=== PATIENT | female | born 1940 | race Caucasian/White ===

== ENCOUNTER 2017-05-28 10:36 | Emergency (ER) | payer MEDICARE, OTHER | END 2017-05-28 13:20 | disposition home or self-care (01) | LOC: FTE 10:36 | DX: M43.6 Torticollis (principal); I10 Essential (primary) hypertension; E11.9 Type 2 diabetes mellitus without complications; Z79.84 Long term (current) use of oral hypoglycemic drugs; Z79.82 Long term (current) use of aspirin | CPT/HCPCS: 99283 ==

== ENCOUNTER 2017-08-27 01:09 | Inpatient (IN) | payer MEDICARE, OTHER ==
[2017-08-27 02:34] LABS: ADD MAN DIFF? NO
[2017-08-27 02:37] LABS: BASOPHILS % 0.3 % (0.0-2.0); EOSINOPHILS # 0.1 10^3/ul (0.0-0.5); EOSINOPHILS % 1.1 % (0.0-7.0); HEMATOCRIT 39.4 % (37.0-47.0); HEMOGLOBIN 12.8 g/dl (12.0-16.0); LYMPHOCYTES # 3.2 10^3/ul (0.8-2.9); LYMPHOCYTES % 35.7 % (15.0-51.0); MEAN CORPUSCULAR HEMOGLOBIN 27.3 pg (29.0-33.0); MEAN CORPUSCULAR HGB CONC 32.5 g/dl (32.0-37.0); MONOCYTE # 0.8 10^3/ul (0.3-0.9); MONOCYTES % 8.7 % (0.0-11.0); NEUTROPHIL # 4.9 10^3/ul (1.6-7.5); PLATELET COUNT 267 10^3/UL (140-415); RED BLOOD COUNT 4.69 10^6/ul (4.20-5.40); RED CELL DISTRIBUTION WIDTH 14.5 % (11.5-14.5)
[2017-08-27 02:58] LABS: ALANINE AMINOTRANSFERASE 22 IU/L (13-69); ALBUMIN 3.9 g/dl (3.3-4.9); ALBUMIN/GLOBULIN RATIO 0.97; ALKALINE PHOSPHATASE 114 IU/L (42-121); ANION GAP 17 (8-16); ASPARTATE AMINO TRANSFERASE 30 IU/L (15-46); BILIRUBIN,INDIRECT 1.3 mg/dl (0-1.1); BILIRUBIN,TOTAL 1.3 mg/dl (0.2-1.3); BLOOD UREA NITROGEN 14 mg/dl (7-20); CALCIUM 8.6 mg/dl (8.4-10.2); CARBON DIOXIDE 24 mmol/L (21-31); CHLORIDE 91 mmol/L (97-110); CREATININE 0.93 mg/dl (0.44-1.00); GLUCOSE 138 mg/dl (70-220); SODIUM 127 mmol/L (135-144); TOTAL PROTEIN 7.9 g/dl (6.1-8.1)
[2017-08-27 03:08] LABS: B-TYPE NATRIURETIC PEPTIDE 1370 PG/ML (0-450)
[2017-08-27 03:09] LABS: TROPONIN-I < 0.012 ng/ml (0.00-0.12)
[2017-08-27] MEDS: FUROSEMIDE 40 MG INJ IV ×2 (03:26→17:50)
[2017-08-27] MEDS ORDERED: NACL 0.9% 3 ML SYG IV (03:30)
[2017-08-27] MEDS ORDERED: ONDANSETRON 4 MG INJ IV (03:30)
[2017-08-27] MEDS ORDERED: morphine 2 MG INJ IV (03:30)
[2017-08-27] MEDS ORDERED: BISACODYL (EC) 5 MG TAB PO (03:30)
[2017-08-27] MEDS ORDERED: DOCUSATE SODIUM 100 MG CAP PO (03:30)
[2017-08-27] MEDS ORDERED: NITROGLYCERIN (SL) 0.4 MG TAB SL (03:30)
[2017-08-27] MEDS ORDERED: ACETAMINOPHEN 325 MG TAB PO (03:30)
[2017-08-27 05:47] LABS: ADD MAN DIFF? NO
[2017-08-27 05:52] LABS: BASOPHIL # 0.1 10^3/ul (0.0-0.1); BASOPHILS % 0.6 % (0.0-2.0); EOSINOPHILS # 0.1 10^3/ul (0.0-0.5); EOSINOPHILS % 1.4 % (0.0-7.0); HEMATOCRIT 37.6 % (37.0-47.0); HEMOGLOBIN 12.1 g/dl (12.0-16.0); LYMPHOCYTES # 2.4 10^3/ul (0.8-2.9); MEAN CORPUSCULAR HEMOGLOBIN 26.9 pg (29.0-33.0); MEAN CORPUSCULAR HGB CONC 32.2 g/dl (32.0-37.0); MEAN CORPUSCULAR VOLUME 83.7 fl (82.0-101.0); MEAN PLATELET VOLUME 10.2 fl (7.4-10.4); MONOCYTE # 0.7 10^3/ul (0.3-0.9); MONOCYTES % 7.9 % (0.0-11.0); NEUTROPHIL # 5.6 10^3/ul (1.6-7.5); NEUTROPHILS % 62.8 % (39.0-77.0); PLATELET COUNT 279 10^3/UL (140-415); RED BLOOD COUNT 4.49 10^6/ul (4.20-5.40); RED CELL DISTRIBUTION WIDTH 13.7 % (11.5-14.5)
[2017-08-27 05:52] LABS: WHITE BLOOD COUNT 8.9 10^3/ul (4.8-10.8)
[2017-08-27 06:22] LABS: ALANINE AMINOTRANSFERASE 29 IU/L (13-69); ALBUMIN 3.5 g/dl (3.3-4.9); ALBUMIN/GLOBULIN RATIO 0.97; ALKALINE PHOSPHATASE 105 IU/L (42-121); ANION GAP 13 (8-16); ASPARTATE AMINO TRANSFERASE 29 IU/L (15-46); BILIRUBIN,INDIRECT 1.2 mg/dl (0-1.1); BILIRUBIN,TOTAL 1.2 mg/dl (0.2-1.3); BLOOD UREA NITROGEN 14 mg/dl (7-20); CALCIUM 8.7 mg/dl (8.4-10.2); CARBON DIOXIDE 29 mmol/L (21-31); CHLORIDE 91 mmol/L (97-110); CHOL/HDL RATIO 2.8 RATIO; CHOLESTEROL 115 mg/dl (100-200); GLUCOSE 139 mg/dl (70-220); HDL CHOLESTEROL 41 mg/dl (33-92); LDL CHOLESTEROL,CALCULATED 59 mg/dl; POTASSIUM 4.9 mmol/L (3.5-5.1); SODIUM 128 mmol/L (135-144); TOTAL PROTEIN 7.1 g/dl (6.1-8.1); TRIGLYCERIDES 77 mg/dl (0-149)
[2017-08-27] MEDS: INSULIN ASPART [NOVOLOG] 3 ML PEN SC ×4 (07:55→21:00)
[2017-08-27] MEDS: METOPROLOL (XL) 50 MG TAB PO ×2 (09:23→21:35)
[2017-08-27] MEDS: ASPIRIN 81 MG TAB PO (09:23)
[2017-08-27 09:58] LABS: CK-MB 0.86 ng/ml (0.0-2.4)
[2017-08-27 10:09] LABS: CK INDEX 2.4
[2017-08-27 10:14] LABS: CREATINE KINASE 36 IU/L (23-200)
[2017-08-27 10:24] LABS: TROPONIN-I < 0.012 ng/ml (0.00-0.12)
[2017-08-27] MEDS ORDERED: GLUCAGON 1 MG INJ IM (11:00)
[2017-08-27] MEDS ORDERED: DEXTROSE 50% 50 ML SYRINGE IV ×2 (11:00)
[2017-08-27] MEDS ORDERED: GLUCOSE GEL 15 GRAM TUBE PO ×2 (11:00)
[2017-08-27] MEDS ORDERED: GLUCOSE GEL 15 GRAM TUBE BUCCAL (11:00)
[2017-08-27] MEDS: INSULIN GLARGINE [LANtus] 3 ML PEN SC (12:21)
[2017-08-27] MEDS: ENOXAPARIN 40 MG/0.4 ML SYG SC (12:22)
[2017-08-27 12:53] LABS: OSMOLALITY 264 mOsm/kg (280-295)
[2017-08-27 15:21] LABS: CREATINE KINASE 43 IU/L (23-200)
[2017-08-27 15:29] LABS: CK INDEX 1.9; CK-MB 0.81 ng/ml (0.0-2.4)
[2017-08-27 15:32] LABS: TROPONIN-I < 0.012 ng/ml (0.00-0.12)
[2017-08-27 17:57] LABS: SODIUM,URINE RANDOM 62 mmol/L (30-90)
[2017-08-27] MEDS ORDERED: morphine LIQ (10 MG/5 ML) CUP PO (18:30)
[2017-08-27 18:38] LABS: OSMOLALITY,URINE 165 mOsm/kg (250-1200)
[2017-08-27] MEDS: ATORVASTATIN 10 MG TAB PO (21:34)
[2017-08-27] MEDS: APIXABAN 5 MG TABLET PO (21:34)
[2017-08-28] MEDS: ACCU-CHEK XX (02:00)
[2017-08-28] MEDS: FUROSEMIDE 40 MG INJ IV ×2 (06:05→18:30)
[2017-08-28] MEDS: INSULIN GLARGINE [LANtus] 3 ML PEN SC (08:10)
[2017-08-28] MEDS: INSULIN ASPART [NOVOLOG] 3 ML PEN SC ×4 (08:11→21:00)
[2017-08-28 08:56] LABS: ADD MAN DIFF? NO
[2017-08-28 09:02] LABS: WHITE BLOOD COUNT 6.4 10^3/ul (4.8-10.8)
[2017-08-28 09:02] LABS: BASOPHIL # 0.1 10^3/ul (0.0-0.1); BASOPHILS % 0.8 % (0.0-2.0); EOSINOPHILS # 0.1 10^3/ul (0.0-0.5); EOSINOPHILS % 1.6 % (0.0-7.0); HEMATOCRIT 40.9 % (37.0-47.0); HEMOGLOBIN 13.4 g/dl (12.0-16.0); LYMPHOCYTES # 2.2 10^3/ul (0.8-2.9); LYMPHOCYTES % 33.5 % (15.0-51.0); MEAN CORPUSCULAR HEMOGLOBIN 27.2 pg (29.0-33.0); MEAN CORPUSCULAR HGB CONC 32.8 g/dl (32.0-37.0); MEAN PLATELET VOLUME 10.7 fl (7.4-10.4); MONOCYTE # 0.6 10^3/ul (0.3-0.9); MONOCYTES % 8.9 % (0.0-11.0); NEUTROPHIL # 3.5 10^3/ul (1.6-7.5); PLATELET COUNT 308 10^3/UL (140-415); RED BLOOD COUNT 4.93 10^6/ul (4.20-5.40); RED CELL DISTRIBUTION WIDTH 14.1 % (11.5-14.5)
[2017-08-28] MEDS: APIXABAN 5 MG TABLET PO ×2 (09:17→20:37)
[2017-08-28] MEDS: METOPROLOL (XL) 50 MG TAB PO ×2 (09:17→20:39)
[2017-08-28] MEDS: ASPIRIN 81 MG TAB PO (09:17)
[2017-08-28 09:26] LABS: ALANINE AMINOTRANSFERASE 25 IU/L (13-69); ALBUMIN 3.7 g/dl (3.3-4.9); ALBUMIN/GLOBULIN RATIO 0.94; ALKALINE PHOSPHATASE 109 IU/L (42-121); ANION GAP 13 (8-16); ASPARTATE AMINO TRANSFERASE 39 IU/L (15-46); BILIRUBIN,INDIRECT 1.4 mg/dl (0-1.1); BILIRUBIN,TOTAL 1.4 mg/dl (0.2-1.3); BLOOD UREA NITROGEN 9 mg/dl (7-20); CALCIUM 8.5 mg/dl (8.4-10.2); CARBON DIOXIDE 35 mmol/L (21-31); CHLORIDE 91 mmol/L (97-110); CREATININE 0.63 mg/dl (0.44-1.00); GLUCOSE 126 mg/dl (70-220); POTASSIUM 3.6 mmol/L (3.5-5.1); SODIUM 135 mmol/L (135-144); TOTAL PROTEIN 7.6 g/dl (6.1-8.1)
[2017-08-28 09:44] LABS: MAGNESIUM 1.4 mg/dl (1.7-2.5)
[2017-08-28] MEDS: MAGNESIUM SULFATE 3 GM in DEXTROSE 5% 100 ML IVPB (12:52)
[2017-08-28] MEDS: LISINOPRIL 5 MG TAB PO (16:01)
[2017-08-28] MEDS: ATORVASTATIN 20 MG TAB PO (20:37)
[2017-08-29] MEDS: ACCU-CHEK XX (02:00)
[2017-08-29] MEDS: FUROSEMIDE 40 MG INJ IV (05:56)
[2017-08-29 06:28] LABS: ADD MAN DIFF? NO
[2017-08-29 06:38] LABS: BASOPHILS % 0.6 % (0.0-2.0); EOSINOPHILS # 0.1 10^3/ul (0.0-0.5); EOSINOPHILS % 2.1 % (0.0-7.0); HEMATOCRIT 39.3 % (37.0-47.0); HEMOGLOBIN 12.8 g/dl (12.0-16.0); LYMPHOCYTES # 2.4 10^3/ul (0.8-2.9); MEAN CORPUSCULAR HEMOGLOBIN 27.2 pg (29.0-33.0); MEAN CORPUSCULAR HGB CONC 32.6 g/dl (32.0-37.0); MEAN CORPUSCULAR VOLUME 83.4 fl (82.0-101.0); MEAN PLATELET VOLUME 10.5 fl (7.4-10.4); MONOCYTE # 0.6 10^3/ul (0.3-0.9); MONOCYTES % 9.1 % (0.0-11.0); NEUTROPHIL # 3.5 10^3/ul (1.6-7.5); NEUTROPHILS % 51.9 % (39.0-77.0); PLATELET COUNT 308 10^3/UL (140-415); RED BLOOD COUNT 4.71 10^6/ul (4.20-5.40)
[2017-08-29 06:38] LABS: WHITE BLOOD COUNT 6.7 10^3/ul (4.8-10.8)
[2017-08-29 07:04] LABS: MAGNESIUM 1.7 mg/dl (1.7-2.5)
[2017-08-29 07:04] LABS: PHOSPHORUS 4.8 mg/dl (2.5-4.9)
[2017-08-29 07:07] LABS: ALANINE AMINOTRANSFERASE 27 IU/L (13-69); ALBUMIN/GLOBULIN RATIO 0.88; ALKALINE PHOSPHATASE 86 IU/L (42-121); ANION GAP 12 (8-16); ASPARTATE AMINO TRANSFERASE 33 IU/L (15-46); BILIRUBIN,INDIRECT 1.2 mg/dl (0-1.1); BILIRUBIN,TOTAL 1.2 mg/dl (0.2-1.3); BLOOD UREA NITROGEN 13 mg/dl (7-20); CALCIUM 8.6 mg/dl (8.4-10.2); CARBON DIOXIDE 36 mmol/L (21-31); CHLORIDE 91 mmol/L (97-110); CREATININE 0.58 mg/dl (0.44-1.00); GLUCOSE 114 mg/dl (70-220); SODIUM 135 mmol/L (135-144); TOTAL PROTEIN 6.4 g/dl (6.1-8.1)
[2017-08-29] MEDS: INSULIN ASPART [NOVOLOG] 3 ML PEN SC ×3 (07:55→17:24)
[2017-08-29] MEDS: LISINOPRIL 5 MG TAB PO (08:01)
[2017-08-29] MEDS: APIXABAN 5 MG TABLET PO (08:02)
[2017-08-29] MEDS: METOPROLOL (XL) 50 MG TAB PO (08:02)
[2017-08-29] MEDS: INSULIN GLARGINE [LANtus] 3 ML PEN SC (08:11)
[2017-08-29] MEDS: MAGNESIUM SULFATE 3 GM in DEXTROSE 5% 100 ML IVPB (15:54)
[2017-08-30] MEDS ORDERED: FUROSEMIDE 40 MG TAB PO (09:00)
== END 2017-08-29 18:30 | disposition home or self-care (01) | DRG 292 ==
LOC: E/R 01:09 → TEL 03:13
DX: I11.0 Hypertensive heart disease with heart failure (principal); E87.1 Hypo-osmolality and hyponatremia; I50.23 Acute on chronic systolic (congestive) heart failure; I48.91 Unspecified atrial fibrillation; E66.9 Obesity, unspecified; Z68.33 Body mass index [BMI] 33.0-33.9, adult; Z91.14 Patient's other noncompliance with medication regimen; I42.9 Cardiomyopathy, unspecified; E78.00 Pure hypercholesterolemia, unspecified; I27.20 Pulmonary hypertension, unspecified; E11.9 Type 2 diabetes mellitus without complications; Z79.82 Long term (current) use of aspirin; Z79.84 Long term (current) use of oral hypoglycemic drugs
CPT/HCPCS: 36415; 71045; 80053; 80061; 82550; 82553; 82962; 83036; 83735; 83880; 83930; 83935; 84100; 84300; 84443; 84484; 85025; 93005; 93306; 96374; 99285-25

== ENCOUNTER 2018-06-02 07:00 | Inpatient (IN) | payer MEDICARE, OTHER ==
[2018-06-02] MEDS: ALBUTEROL 0.5% (NEB) 2.5 MG/0.5 ML AMP INH (08:01)
[2018-06-02 08:12] LABS: ADD UMIC YES; UR ASCORBIC ACID NEGATIVE (NEGATIVE); UR BACTERIA FEW /HPF (NONE SEEN); UR BILIRUBIN (Dip) NEGATIVE (NEGATIVE); UR BLOOD (Dip) NEGATIVE (NEGATIVE); UR CLARITY SLIGHTLY CLOUDY (CLEAR); UR COLOR YELLOW (YELLOW); UR GLUCOSE (Dip) NEGATIVE (NEGATIVE); UR KETONES (Dip) NEGATIVE (NEGATIVE); UR LEUKOCYTE ESTERASE (Dip) 1+ Leu/ul (NEGATIVE); UR NITRITE (Dip) NEGATIVE (NEGATIVE); UR RBC 7 /HPF (0-5); UR SPECIFIC GRAVITY (Dip) 1.013 (1.003-1.030); UR SQUAMOUS EPITHELIAL CELL FEW /HPF (FEW); UR TOTAL PROTEIN (Dip) 2+ mg/dl (NEGATIVE); UR UROBILINOGEN (Dip) 2+ mg/dL (NEGATIVE); UR WBC 127 /HPF (0-5)
[2018-06-02] MEDS: ONDANSETRON 4 MG INJ IV (08:31)
[2018-06-02] MEDS: KETOROLAC 15 MG INJ IV (08:32)
[2018-06-02] MEDS: NICARDipine HCL 30 MG CAPSULE PO (08:32)
[2018-06-02 08:33] LABS: ADD MAN DIFF? NO
[2018-06-02] MEDS: SOD CHLORIDE 0.9% 500 ML IV (08:33)
[2018-06-02 08:38] LABS: BASOPHILS % 0.4 % (0.0-2.0); EOSINOPHILS % 0.1 % (0.0-7.0); HEMATOCRIT 39.7 % (37.0-47.0); HEMOGLOBIN 13.1 g/dl (12.0-16.0); LYMPHOCYTES # 2.1 10^3/ul (0.8-2.9); LYMPHOCYTES % 23.3 % (15.0-51.0); MEAN CORPUSCULAR HEMOGLOBIN 30.2 pg (29.0-33.0); MEAN CORPUSCULAR VOLUME 91.5 fl (82.0-101.0); MEAN PLATELET VOLUME 10.7 fl (7.4-10.4); NEUTROPHIL # 5.8 10^3/ul (1.6-7.5); NEUTROPHILS % 64.9 % (39.0-77.0); PLATELET COUNT 238 10^3/UL (140-415); RED BLOOD COUNT 4.34 10^6/ul (4.20-5.40); RED CELL DISTRIBUTION WIDTH 12.9 % (11.5-14.5)
[2018-06-02] MEDS: CEFTRIAXONE 1 GM/50 ML (PMX) 50 ML IVPB (08:46)
[2018-06-02 08:52] LABS: ALANINE AMINOTRANSFERASE 10 IU/L (13-69); ALBUMIN 4.3 g/dl (3.3-4.9); ALBUMIN/GLOBULIN RATIO 0.95; ALKALINE PHOSPHATASE 83 IU/L (42-121); ANION GAP 15 (5-13); ASPARTATE AMINO TRANSFERASE 39 IU/L (15-46); BILIRUBIN,INDIRECT 1.1 mg/dl (0-1.1); BILIRUBIN,TOTAL 1.1 mg/dl (0.2-1.3); BLOOD UREA NITROGEN 9 mg/dl (7-20); CALCIUM 9.1 mg/dl (8.4-10.2); CARBON DIOXIDE 29 mmol/L (21-31); CHLORIDE 89 mmol/L (97-110); CREATININE 0.51 mg/dl (0.44-1.00); GLUCOSE 164 mg/dl (70-220); LIPASE 37 U/L (23-300); POTASSIUM 4.8 mmol/L (3.5-5.1); SODIUM 133 mmol/L (135-144); TOTAL PROTEIN 8.8 g/dl (6.1-8.1)
[2018-06-02 09:03] LABS: B-TYPE NATRIURETIC PEPTIDE 5210 PG/ML (0-450); TROPONIN-I < 0.012 ng/ml (0.000-0.120)
[2018-06-02] MEDS ORDERED: ONDANSETRON 4 MG INJ IV (11:30)
[2018-06-02] MEDS ORDERED: NACL 0.9% 3 ML SYG IV (11:30)
[2018-06-02] MEDS: ERGOCALCIFEROL 50,000 UNIT CAP PO (13:51)
[2018-06-02] MEDS: OSELTAMIVIR 75 MG CAP PO ×2 (13:52→20:40)
[2018-06-02] MEDS ORDERED: DEXTROSE 50% 50 ML SYRINGE IV ×2 (16:00)
[2018-06-02] MEDS ORDERED: GLUCOSE GEL 15 GRAM TUBE BUCCAL (16:00)
[2018-06-02] MEDS ORDERED: GLUCOSE GEL 15 GRAM TUBE PO ×2 (16:00)
[2018-06-02] MEDS ORDERED: GLUCAGON 1 MG INJ IM (16:00)
[2018-06-02] MEDS: INSULIN ASPART [NOVOLOG] 3 ML PEN SC ×3 (17:19→20:41)
[2018-06-02] MEDS: LEVALBUTEROL (NEB) 0.63 MG/3 ML AMP HHN (19:56)
[2018-06-02] MEDS: APIXABAN 5 MG TABLET PO (20:41)
[2018-06-02] MEDS: ATORVASTATIN 10 MG TAB PO (20:41)
[2018-06-02] MEDS: ACETAMINOPHEN 325 MG TAB PO (20:42)
[2018-06-02] MEDS: INSULIN GLARGINE [LANTus] (100 UNITS/ML) SYG SC (20:53)
[2018-06-02] MEDS ORDERED: NON-FORMULARY/PATIENT OWN MED (Pravastatin Sodium* 40 MG) PO (21:00)
[2018-06-02] MEDS ORDERED: PIPER-TAZO 3.375 GM IV (PMX) 100 ML IVPB (23:00)
[2018-06-02] MEDS ORDERED: VANCOMYCIN IV PER PHARMACY XX (23:00)
[2018-06-02] MEDS: PIPER-TAZO 3.375 GM IV (PMX) 100 ML IVPB (23:20)
[2018-06-03] MEDS: VANCOMYCIN HCL 1.5 GM in SOD CHLORIDE 0.9% 250 ML IVPB (01:19)
[2018-06-03] MEDS: LEVALBUTEROL (NEB) 0.63 MG/3 ML AMP HHN ×4 (02:00→21:30)
[2018-06-03 05:56] LABS: ADD MAN DIFF? NO
[2018-06-03 06:09] LABS: BASOPHILS % 0.6 % (0.0-2.0); HEMATOCRIT 39.6 % (37.0-47.0); HEMOGLOBIN 13.2 g/dl (12.0-16.0); LYMPHOCYTES # 2.8 10^3/ul (0.8-2.9); LYMPHOCYTES % 38.3 % (15.0-51.0); MEAN CORPUSCULAR HEMOGLOBIN 30.4 pg (29.0-33.0); MEAN CORPUSCULAR HGB CONC 33.3 g/dl (32.0-37.0); MEAN CORPUSCULAR VOLUME 91.2 fl (82.0-101.0); MEAN PLATELET VOLUME 10.6 fl (7.4-10.4); MONOCYTE # 1.1 10^3/ul (0.3-0.9); MONOCYTES % 14.6 % (0.0-11.0); NEUTROPHIL # 3.3 10^3/ul (1.6-7.5); NEUTROPHILS % 46.1 % (39.0-77.0); PLATELET COUNT 200 10^3/UL (140-415); RED BLOOD COUNT 4.34 10^6/ul (4.20-5.40); RED CELL DISTRIBUTION WIDTH 12.9 % (11.5-14.5)
[2018-06-03 06:09] LABS: WHITE BLOOD COUNT 7.3 10^3/ul (4.8-10.8)
[2018-06-03] MEDS: PIPER-TAZO 2.25 GM/NS 50 ML IVPB ×4 (06:12→23:21)
[2018-06-03 06:28] LABS: ALANINE AMINOTRANSFERASE 17 IU/L (13-69); ALBUMIN 3.4 g/dl (3.3-4.9); ALBUMIN/GLOBULIN RATIO 0.87; ALKALINE PHOSPHATASE 73 IU/L (42-121); ANION GAP 15 (5-13); ASPARTATE AMINO TRANSFERASE 29 IU/L (15-46); BILIRUBIN,INDIRECT 0.7 mg/dl (0-1.1); BILIRUBIN,TOTAL 0.7 mg/dl (0.2-1.3); BLOOD UREA NITROGEN 17 mg/dl (7-20); CALCIUM 8.6 mg/dl (8.4-10.2); CARBON DIOXIDE 28 mmol/L (21-31); CHLORIDE 88 mmol/L (97-110); CREATININE 1.03 mg/dl (0.44-1.00); GLUCOSE 111 mg/dl (70-220); POTASSIUM 3.4 mmol/L (3.5-5.1); SODIUM 131 mmol/L (135-144); TOTAL PROTEIN 7.3 g/dl (6.1-8.1)
[2018-06-03 07:01] LABS: CHOL/HDL RATIO 3.3 RATIO; CHOLESTEROL 147 mg/dl (100-200); HDL CHOLESTEROL 44 mg/dl (33-92); LDL CHOLESTEROL,CALCULATED 88 mg/dl; MAGNESIUM 1.6 mg/dl (1.7-2.5); TRIGLYCERIDES 74 mg/dl (0-149)
[2018-06-03 07:01] LABS: PHOSPHORUS 5.3 mg/dl (2.5-4.9)
[2018-06-03 07:06] LABS: HEMOGLOBIN A1C 6.3 % (0-5.9)
[2018-06-03] MEDS: INSULIN ASPART [NOVOLOG] 3 ML PEN SC ×7 (07:53→20:26)
[2018-06-03] MEDS: APIXABAN 5 MG TABLET PO ×2 (08:31→20:26)
[2018-06-03] MEDS: FUROSEMIDE 20 MG TAB PO (08:31)
[2018-06-03] MEDS: LISINOPRIL 5 MG TAB PO (08:31)
[2018-06-03] MEDS: METOPROLOL (XL) 50 MG TAB PO (08:31)
[2018-06-03] MEDS: DILTIAZEM (CD) 180 MG CAP PO (08:32)
[2018-06-03] MEDS: OSELTAMIVIR 75 MG CAP PO (08:32)
[2018-06-03] MEDS: POTASSIUM CHLORIDE (SR) 10 MEQ TAB PO (12:00)
[2018-06-03] MEDS: MAGNESIUM SULFATE 2 GM/50 ML 50 ML IVPB (12:00)
[2018-06-03] MEDS ORDERED: VANCOMYCIN 750 MG (PMX) 250 ML IVPB (13:00)
[2018-06-03 17:24] LABS: SODIUM,URINE RANDOM < 13 mmol/L (30-90)
[2018-06-03 17:53] LABS: OSMOLALITY,URINE 219 mOsm/kg (250-1200)
[2018-06-03] MEDS: ATORVASTATIN 10 MG TAB PO (20:26)
[2018-06-03] MEDS: OSELTAMIVIR 30 MG CAP PO (20:27)
[2018-06-03] MEDS: INSULIN GLARGINE [LANTus] (100 UNITS/ML) SYG SC (20:33)
[2018-06-04] MEDS: VANCOMYCIN 1 GM 250 ML IVPB (00:20)
[2018-06-04] MEDS: LEVALBUTEROL (NEB) 0.63 MG/3 ML AMP HHN ×4 (01:28→20:18)
[2018-06-04 06:21] LABS: ADD MAN DIFF? NO
[2018-06-04] MEDS: PIPER-TAZO 2.25 GM/NS 50 ML IVPB ×2 (06:28→11:51)
[2018-06-04 06:30] LABS: BASOPHILS % 0.4 % (0.0-2.0); EOSINOPHILS % 0.8 % (0.0-7.0); HEMATOCRIT 38.5 % (37.0-47.0); HEMOGLOBIN 12.8 g/dl (12.0-16.0); LYMPHOCYTES # 2.5 10^3/ul (0.8-2.9); LYMPHOCYTES % 50.6 % (15.0-51.0); MEAN CORPUSCULAR HEMOGLOBIN 30.1 pg (29.0-33.0); MEAN CORPUSCULAR HGB CONC 33.2 g/dl (32.0-37.0); MEAN CORPUSCULAR VOLUME 90.6 fl (82.0-101.0); MEAN PLATELET VOLUME 10.8 fl (7.4-10.4); MONOCYTE # 0.6 10^3/ul (0.3-0.9); MONOCYTES % 12.3 % (0.0-11.0); NEUTROPHIL # 1.8 10^3/ul (1.6-7.5); NEUTROPHILS % 35.7 % (39.0-77.0); PLATELET COUNT 193 10^3/UL (140-415); RED BLOOD COUNT 4.25 10^6/ul (4.20-5.40); RED CELL DISTRIBUTION WIDTH 12.7 % (11.5-14.5)
[2018-06-04 06:30] LABS: WHITE BLOOD COUNT 4.9 10^3/ul (4.8-10.8)
[2018-06-04 07:02] LABS: ANION GAP 7 (5-13); BLOOD UREA NITROGEN 19 mg/dl (7-20); CALCIUM 8.4 mg/dl (8.4-10.2); CARBON DIOXIDE 29 mmol/L (21-31); CHLORIDE 94 mmol/L (97-110); CREATININE 0.76 mg/dl (0.44-1.00); GLUCOSE 144 mg/dl (70-220); SODIUM 130 mmol/L (135-144)
[2018-06-04 07:07] LABS: FREE T4 (FREE THYROXINE) 1.56 ng/dl (0.85-1.93)
[2018-06-04 07:07] LABS: POTASSIUM 3.9 mmol/L (3.5-5.1)
[2018-06-04 07:19] LABS: PHOSPHORUS 4.4 mg/dl (2.5-4.9)
[2018-06-04 07:19] LABS: MAGNESIUM 1.9 mg/dl (1.7-2.5)
[2018-06-04] MEDS: INSULIN ASPART [NOVOLOG] 3 ML PEN SC ×7 (07:47→20:08)
[2018-06-04] MEDS: LISINOPRIL 5 MG TAB PO (08:30)
[2018-06-04] MEDS: FUROSEMIDE 20 MG TAB PO (08:31)
[2018-06-04] MEDS: APIXABAN 5 MG TABLET PO ×2 (08:31→20:07)
[2018-06-04] MEDS: METOPROLOL (XL) 50 MG TAB PO (08:31)
[2018-06-04] MEDS: OSELTAMIVIR 30 MG CAP PO ×2 (08:32→20:08)
[2018-06-04 08:49] LABS: OSMOLALITY 271 mOsm/kg (280-295)
[2018-06-04] MEDS: POLYETHYLENE GLYCOL 17 GM PACKET PO ×2 (10:00→20:09)
[2018-06-04] MEDS ORDERED: BISACODYL (EC) 5 MG TAB PO (10:00)
[2018-06-04] MEDS: DILTIAZEM (CD) 180 MG CAP PO (12:44)
[2018-06-04] MEDS: CEFTRIAXONE 1 GM/50 ML (PMX) 50 ML IVPB (16:31)
[2018-06-04] MEDS: ACETAMINOPHEN 325 MG TAB PO (16:31)
[2018-06-04] MEDS: ATORVASTATIN 10 MG TAB PO (20:07)
[2018-06-04] MEDS: INSULIN GLARGINE [LANTus] (100 UNITS/ML) SYG SC (20:19)
[2018-06-04 21:27] LABS: ADD UMIC YES; UR ASCORBIC ACID NEGATIVE (NEGATIVE); UR BILIRUBIN (Dip) NEGATIVE (NEGATIVE); UR BLOOD (Dip) NEGATIVE (NEGATIVE); UR CLARITY CLEAR (CLEAR); UR COLOR YELLOW (YELLOW); UR GLUCOSE (Dip) NEGATIVE (NEGATIVE); UR KETONES (Dip) NEGATIVE (NEGATIVE); UR LEUKOCYTE ESTERASE (Dip) TRACE Leu/ul (NEGATIVE); UR NITRITE (Dip) NEGATIVE (NEGATIVE); UR RBC 0 /HPF (0-5); UR SPECIFIC GRAVITY (Dip) 1.016 (1.003-1.030); UR TOTAL PROTEIN (Dip) NEGATIVE (NEGATIVE); UR UROBILINOGEN (Dip) NEGATIVE (NEGATIVE); UR WBC 1 /HPF (0-5)
[2018-06-04 21:33] LABS: CREATININE,URINE RANDOM 96.11 mg/dl (20-320)
[2018-06-04 21:36] LABS: SODIUM,URINE RANDOM < 13 mmol/L (30-90)
[2018-06-05] MEDS: GUAIFENESIN 20 MG/ML 5ML CUP PO ×2 (00:14→10:25)
[2018-06-05] MEDS: LEVALBUTEROL (NEB) 0.63 MG/3 ML AMP HHN ×3 (01:33→14:19)
[2018-06-05] MEDS ORDERED: hydrALAzine 20 MG INJ IV (02:00)
[2018-06-05 06:12] LABS: ADD MAN DIFF? NO
[2018-06-05 06:20] LABS: WHITE BLOOD COUNT 4.1 10^3/ul (4.8-10.8)
[2018-06-05 06:20] LABS: BASOPHILS % 0.2 % (0.0-2.0); EOSINOPHILS # 0.1 10^3/ul (0.0-0.5); EOSINOPHILS % 1.5 % (0.0-7.0); HEMATOCRIT 37.6 % (37.0-47.0); HEMOGLOBIN 12.5 g/dl (12.0-16.0); LYMPHOCYTES # 2.1 10^3/ul (0.8-2.9); LYMPHOCYTES % 51.9 % (15.0-51.0); MEAN CORPUSCULAR HEMOGLOBIN 30.3 pg (29.0-33.0); MEAN CORPUSCULAR HGB CONC 33.2 g/dl (32.0-37.0); MEAN CORPUSCULAR VOLUME 91.3 fl (82.0-101.0); MEAN PLATELET VOLUME 10.1 fl (7.4-10.4); MONOCYTE # 0.4 10^3/ul (0.3-0.9); MONOCYTES % 10.4 % (0.0-11.0); NEUTROPHIL # 1.5 10^3/ul (1.6-7.5); NEUTROPHILS % 35.8 % (39.0-77.0); PLATELET COUNT 194 10^3/UL (140-415); RED BLOOD COUNT 4.12 10^6/ul (4.20-5.40); RED CELL DISTRIBUTION WIDTH 12.5 % (11.5-14.5)
[2018-06-05 07:14] LABS: PHOSPHORUS 3.7 mg/dl (2.5-4.9)
[2018-06-05 07:14] LABS: MAGNESIUM 1.9 mg/dl (1.7-2.5)
[2018-06-05 07:20] LABS: ANION GAP 2 (5-13); BLOOD UREA NITROGEN 12 mg/dl (7-20); CALCIUM 8.7 mg/dl (8.4-10.2); CARBON DIOXIDE 35 mmol/L (21-31); CHLORIDE 98 mmol/L (97-110); CREATININE 0.57 mg/dl (0.44-1.00); GLUCOSE 111 mg/dl (70-220); SODIUM 135 mmol/L (135-144)
[2018-06-05] MEDS: INSULIN ASPART [NOVOLOG] 3 ML PEN SC ×6 (08:00→17:21)
[2018-06-05] MEDS: APIXABAN 5 MG TABLET PO (08:16)
[2018-06-05] MEDS: FUROSEMIDE 20 MG TAB PO (08:17)
[2018-06-05] MEDS: METOPROLOL (XL) 50 MG TAB PO (08:18)
[2018-06-05] MEDS: LISINOPRIL 5 MG TAB PO (08:18)
[2018-06-05] MEDS: POLYETHYLENE GLYCOL 17 GM PACKET PO (08:19)
[2018-06-05] MEDS: DILTIAZEM (CD) 180 MG CAP PO (09:42)
[2018-06-05] MEDS: OSELTAMIVIR 30 MG CAP PO ×2 (09:43→18:35)
[2018-06-05] MEDS: CEFTRIAXONE 1 GM/50 ML (PMX) 50 ML IVPB (16:40)
[2018-06-08 13:02] LABS: CREATININE, RANDOM URINE 91 mg/dL (20-275); MICROALBUMIN 0.7 mg/dL; MICROALBUMIN/CREATININE RATIO 8 (<30)
== END 2018-06-05 18:45 | disposition home or self-care (01) | DRG 193 ==
LOC: E/R 07:00 → 6WM 06-04 06:49 → PP2 06-04 21:58 → 6WM 09:22
DX: J10.1 Influenza due to other identified influenza virus with other respiratory manifestations (principal); I50.23 Acute on chronic systolic (congestive) heart failure; E87.1 Hypo-osmolality and hyponatremia; I42.9 Cardiomyopathy, unspecified; I48.91 Unspecified atrial fibrillation; I11.0 Hypertensive heart disease with heart failure; E78.5 Hyperlipidemia, unspecified; E11.9 Type 2 diabetes mellitus without complications; I27.20 Pulmonary hypertension, unspecified; E66.9 Obesity, unspecified; Z68.31 Body mass index [BMI] 31.0-31.9, adult
CPT/HCPCS: 36415; 70450; 71045; 80048; 80053; 80061; 81001; 81003; 82043; 82533; 82962; 83036; 83690; 83735; 83880; 83930; 83935; 84100; 84155; 84300; 84439; 84443; 84484; 85025; 87040; 87086; 87400; 93005; 94640; 94644; 94664; 96374; 96375; 99291-25

== ENCOUNTER 2018-07-31 02:15 | Emergency (ER) | payer MEDICARE, OTHER ==
[2018-07-31 05:53] LABS: ADD MAN DIFF? NO
[2018-07-31 06:05] LABS: BASOPHILS % 0.4 % (0.0-2.0); EOSINOPHILS % 0.5 % (0.0-7.0); HEMATOCRIT 41.5 % (37.0-47.0); HEMOGLOBIN 13.3 g/dl (12.0-16.0); LYMPHOCYTES # 2.1 10^3/ul (0.8-2.9); LYMPHOCYTES % 24.8 % (15.0-51.0); MEAN CORPUSCULAR HEMOGLOBIN 28.9 pg (29.0-33.0); MEAN PLATELET VOLUME 10.2 fl (7.4-10.4); MONOCYTE # 0.5 10^3/ul (0.3-0.9); MONOCYTES % 5.4 % (0.0-11.0); NEUTROPHIL # 5.7 10^3/ul (1.6-7.5); NEUTROPHILS % 68.2 % (39.0-77.0); PLATELET COUNT 244 10^3/UL (140-415); RED BLOOD COUNT 4.61 10^6/ul (4.20-5.40)
[2018-07-31 06:05] LABS: WHITE BLOOD COUNT 8.3 10^3/ul (4.8-10.8)
[2018-07-31] MEDS: ONDANSETRON (ODT) 4 MG TAB ODT (06:14)
[2018-07-31] MEDS: HYDROCODONE/APAP (5/325) TAB PO (06:14)
[2018-07-31 06:27] LABS: ANION GAP 11 (5-13); BLOOD UREA NITROGEN 18 mg/dl (7-20); CALCIUM 9.5 mg/dl (8.4-10.2); CARBON DIOXIDE 26 mmol/L (21-31); CHLORIDE 96 mmol/L (97-110); CREATININE 0.67 mg/dl (0.44-1.00); GLUCOSE 169 mg/dl (70-220); POTASSIUM 4.7 mmol/L (3.5-5.1); SODIUM 133 mmol/L (135-144)
[2018-07-31] MEDS ORDERED: BISACODYL (EC) 5 MG TAB PO (06:30)
[2018-07-31] MEDS ORDERED: ALBUTEROL HFA 8 GM INHALER INH (06:30)
[2018-07-31] MEDS ORDERED: DOCUSATE SODIUM 100 MG CAP PO (06:30)
[2018-07-31] MEDS ORDERED: NACL 0.9% 3 ML SYG IV (06:30)
[2018-07-31] MEDS ORDERED: ATROPINE 1 MG/10 ML SYRINGE IV (06:30)
[2018-07-31] MEDS ORDERED: ONDANSETRON 4 MG INJ IV (06:30)
[2018-07-31] MEDS ORDERED: ACETAMINOPHEN 325 MG TAB PO (06:30)
[2018-07-31] MEDS: LISINOPRIL 5 MG TAB PO (09:00)
== END 2018-07-31 13:43 | disposition home or self-care (01) ==
LOC: E/R 02:15
DX: T44.7X1A Poisoning by beta-adrenoreceptor antagonists, accidental (unintentional), initial encounter (principal); I11.0 Hypertensive heart disease with heart failure; I50.9 Heart failure, unspecified; E11.9 Type 2 diabetes mellitus without complications; Z79.84 Long term (current) use of oral hypoglycemic drugs
CPT/HCPCS: 36415; 70450; 80048; 85025; 93005; 99285-25

== ENCOUNTER 2018-09-05 22:28 | Emergency (ER) | payer MEDICARE, OTHER ==
[2018-09-05 23:46] LABS: ADD MAN DIFF? NO
[2018-09-05 23:52] LABS: BASOPHILS % 0.4 % (0.0-2.0); EOSINOPHILS # 0.1 10^3/ul (0.0-0.5); EOSINOPHILS % 0.7 % (0.0-7.0); HEMATOCRIT 44.6 % (37.0-47.0); HEMOGLOBIN 14.3 g/dl (12.0-16.0); LYMPHOCYTES % 35.9 % (15.0-51.0); MEAN CORPUSCULAR HEMOGLOBIN 28.7 pg (29.0-33.0); MEAN CORPUSCULAR HGB CONC 32.1 g/dl (32.0-37.0); MEAN CORPUSCULAR VOLUME 89.6 fl (82.0-101.0); MEAN PLATELET VOLUME 9.6 fl (7.4-10.4); MONOCYTE # 0.6 10^3/ul (0.3-0.9); NEUTROPHIL # 4.7 10^3/ul (1.6-7.5); NEUTROPHILS % 55.5 % (39.0-77.0); PLATELET COUNT 268 10^3/UL (140-415); RED BLOOD COUNT 4.98 10^6/ul (4.20-5.40); RED CELL DISTRIBUTION WIDTH 14.6 % (11.5-14.5)
[2018-09-05 23:52] LABS: WHITE BLOOD COUNT 8.5 10^3/ul (4.8-10.8)
[2018-09-06 00:14] LABS: INR 1.15; PROTIME 14.8 Sec (11.9-14.9); PT RATIO 1.2
[2018-09-06 00:18] LABS: ANION GAP 7 (5-13); BLOOD UREA NITROGEN 13 mg/dl (7-20); CALCIUM 9.3 mg/dl (8.4-10.2); CARBON DIOXIDE 33 mmol/L (21-31); CHLORIDE 96 mmol/L (97-110); CREATININE 0.63 mg/dl (0.44-1.00); GLUCOSE 147 mg/dl (70-220); POTASSIUM 3.9 mmol/L (3.5-5.1); SODIUM 136 mmol/L (135-144)
[2018-09-06 00:29] LABS: B-TYPE NATRIURETIC PEPTIDE 2230 PG/ML (0-450); TROPONIN-I < 0.012 ng/ml (0.000-0.120)
[2018-09-06] MEDS: ACETAMINOPHEN 325 MG TAB PO (00:48)
[2018-09-06] MEDS: METOCLOPRAMIDE 10 MG INJ IV (00:48)
[2018-09-06] MEDS: KETOROLAC 15 MG INJ IV ×2 (02:07→02:40)
== END 2018-09-06 03:01 | disposition home or self-care (01) ==
LOC: E/R 22:28
DX: R42 Dizziness and giddiness (principal); I11.0 Hypertensive heart disease with heart failure; I50.9 Heart failure, unspecified; E11.9 Type 2 diabetes mellitus without complications; J44.9 Chronic obstructive pulmonary disease, unspecified; Z79.84 Long term (current) use of oral hypoglycemic drugs
CPT/HCPCS: 36415; 70450; 71045; 80048; 83880; 84484; 85025; 85610; 93005; 96374; 96375; 99285-25